=== PATIENT | male | born 1955 | race Caucasian/White ===

== ENCOUNTER → 2016-12-09 | Day surgery (SDC) | payer OTHER ==
[2016-12-06 15:43] VITALS: BMI 27.0
[~2016-12-09] VITALS: Ht 188 cm; Wt 97.7 kg
[~2016-12-09] MED LIST: ATROPINE SULFATE 0.1 MG/ML 5ML SYR IV PRN; BACITRACIN OINT 15 GM TUBE ONE; BUPIVACAINE 0.5 % 5 MG/1 ML MPF 30ML VIAL ONE; CEFAZOLIN 2000 MG/60 ML D5W IV SCH; CEFAZOLIN IV 2,000 MG/60 ML D5W IV ONE; DEXAMETHASONE SOD INJ 4 MG/ML VIAL ONE; EpHEDrine SULFATE INJ 50 MG/ML AMP IV PRN; EpHEDrine SULFATE INJ 50 MG/ML AMP ONE; FENTANYL CITRATE INJ 50 MCG/1 ML 2 ML VIAL IV PRN; FENTANYL CITRATE INJ 50 MCG/1 ML 2 ML VIAL ONE; GLYCOPYRROLATE INJ 0.2 MG/ML VIAL ONE; HYDROmorphone INJ 1 MG/ML SYR IV PRN; LACTATED RINGER'S 1000ML 1,000 ML IV SCH; LIDOCAINE HCL 1% 20 ML VIAL ONE; LIDOCAINE HCL 2% 2 ML VIAL (20MG/ML) ONE; MIDAZOLAM HCL 1 MG/ML 2ML VIAL ONE; MULT-506 PO; NEOSTIGMINE METHYLSULFATE 5 MG/5 ML SYR ONE; NURSING VERBAL MED ORDER ONE; ONDANSETRON INJ 2 MG/ML 2 ML VIAL IV PRN; ONDANSETRON INJ 2 MG/ML 2 ML VIAL ONE; OXYC-57 PO; OXYCODONE/ACETAMINOPHEN 5-325 TAB PO PRN; PHENYLEPHRINE HCL INJ 10 MG/ML VIAL ONE; PROPOFOL IV EMULSION 10 MG/ML 20 ML VIAL IV ONE; ROCURONIUM BROMIDE 10 MG/ML 5 ML VIAL ONE; SUCCINYLCHOLINE CHLORIDE 20 MG/ML 10 ML VIAL IV ONE; VALA500T60 PO
[2016-12-09 05:47] VITALS: BP 127/83; PULSE 59; TEMP 36.7; O2SAT 97; Ht 188 cm; Wt 97.7 kg
--- NOTE | 2016-12-09 07:12 | History & Physical Bridge Note ---
H&P Re-Evaluation Bridge Note: I have examined the patient, reviewed the History & Physical and in the interval since the performance of the History & Physical I have noted the following changes of clinical significance: No changes noted
--- NOTE | 2016-12-09 09:25 | [facility] Post Operative Brief Note ---
Immediate Operative Summary Operative Date Dec 09, 2016. Pre-Operative Diagnosis recurrent Right Inguinal Hernia Post-Operative Diagnosis recurrent Right Inguinal Hernia Procedure(s) Performed Open repair right Recurrent Inguinal Hernia with Mesh Surgeon Dr. Luan Simon Brazing Machine Feeder Surgeon(s) surgical dental assistant Estimated Blood Loss 10ML Findings right large direct inguinal hernia Fluids (cc crystalloids) 1500ml Specimens A. RIGHT HERNIA SAC Drains none Anesthesia general Complication(s) None Disposition Recovery Room / PACU
--- NOTE | 2016-12-09 09:31 | Discharge Instructions ---
Discharge Instructions Visit Reason for Visit: Recurrent Right Inguinal Hernia Discharge Discharge Diagnosis / Problem: S/P open repair right recurrent inguinal hernia with mesh Discharge Goals Goal(s): Decrease discomfort, Improve function Activity Recommendations Activity Limitations: per Instructions/Follow-up section Lifting Limitations: no more than 25 pounds Exercise/Sports Limitations: gradually increase as tolerated May Resume Sexual Activity: when tolerated Shower/Bathe: may shower/bathe in 3 days Driving or Machine Use: resume 3 days after discharge Anesthesia . Post Anesthesia Instructions: If you have had General Anesthesia or IV Sedation: * Do not drive today. * Resume driving when surgeon permits. * Do not make important decisions or sign legal documents today. * Call surgeon for: 1. Temperature elevations greater than 101 degrees F. 2. Uncontrollable pain. 3. Excessive bleeding. 4. Persistent nausea and vomiting. 5. Medication intolerance (nausea, vomiting or rash). * For nausea and vomiting use only clear liquids such as: tea, soda, bouillon until nausea subsides, then gradually increase diet as tolerated. * If you have any concerns or questions, call your surgeon's office. If physician is unavailable and it is an emergency, call 911 or go to the nearest emergency room. . Instructions / Follow-Up Instructions / Follow-Up keep ezequiel dressing on for 4 days, he can take a shower on 12/13/2016, no driving while taking pain medicine. Follow up 1 week. Diet Recommendations Recommended Home Diet: resume previous diet Procedures Procedures Performed: Open repair right Recurrent Inguinal Hernia with Mesh Pending Studies Studies pending at discharge: no Medical Emergencies . Who to Call and When: Medical Emergencies: If at any time you feel your situation is an emergency, please call 911 immediately. . Non-Emergent Contact Call Non-Emergent contact if: you have a fever, temperature is above 100.5, your pain is not controlled, your pain is worsening, wound has increased drainage, wound has increased redness . . "Provider Documentation" section prepared by Luan Simon.
--- NOTE | 2016-12-09 10:06 | Anesthesiology Progress Note ---
Anesthesia Post Op Note Date & Time Dec 09, 2016 at 10:05 Vital Signs Pain Intensity: 2 Vital Signs Past 12 Hours Date Time Temp Pulse Resp B/P Pulse Ox O2 Delivery O2 Flow Rate FiO2 12/09/16 09:55 37.1 60 16 127/88 96 Nasal Cannula 2 12/09/16 09:45 53 16 116/82 93 Nasal Cannula 2 12/09/16 09:35 58 16 130/92 98 Mask 10 12/09/16 09:25 65 16 133/85 98 Mask 10 12/09/16 09:15 36.8 65 12 138/100 98 Mask 10 12/09/16 05:47 36.7 59 18 127/83 97 Room Air Notes Mental Status: alert / awake / arousable, participated in evaluation Pt Amnestic to Procedure: Yes Nausea / Vomiting: adequately controlled Pain: adequately controlled Airway Patency, RR, SpO2: stable & adequate BP & HR: stable & adequate Hydration State: stable & adequate Anesthetic Complications: no major complications apparent
[2016-12-09 10:15] VITALS: BP 119/80; PULSE 61; TEMP 36.5; O2SAT 98
[2016-12-09 10:45] VITALS: BP 129/86; PULSE 65; O2SAT 97
[2016-12-09 11:19] VITALS: BP 127/81; PULSE 68; TEMP 36.5; O2SAT 97
[2016-12-09 12:14] VITALS: BP 132/74; PULSE 74; TEMP 36.5; O2SAT 94
--- NOTE | 2016-12-09 17:42 | OPERATIVE REPORT ---
DATE OF OPERATION: 12/09/2016 PREOPERATIVE DIAGNOSIS: Recurrent right inguinal hernia. POSTOPERATIVE DIAGNOSIS: Same. OPERATION: Open repair of recurrent right inguinal hernia with mesh. SURGEON: Dr. Luan Simon. ANESTHESIA: General. ESTIMATED BLOOD LOSS: About 10 mL. FINDINGS: Recurrent right direct hernia. COMPLICATIONS: None. IV FLUIDS: 1500 mL. INDICATIONS FOR THE PROCEDURE: This is a 61-year-old gentleman, who presented with recurrent right inguinal hernia. After laparoscopy repair of right inguinal hernia, the patient required to do an open repair of right recurrent inguinal hernia with mesh. I did talk to the patient about the benefit and risks and alternate procedure. I indicated the risks may include, but not limited such as bleeding, infection, hematoma, seroma, chronic pain, hernia recurrence, or even . The patient understands. He signed informed consent and I answered all questions. DETAILS OF PROCEDURE: We brought in the patient to the OR and put the patient in the supine position. The patient received SCD on bilateral legs to prevent DVT. Also, the patient received 2 grams Ancef IV for prophylactic antibiotic. The patient received general anesthesia without difficulty. The abdomen was prepped and draped in routine sterile fashion. After timeout, I made about 4-cm incision just parallel to right inguinal ligament and opened the external oblique fascia and mobilized the cord structure, put the Alexandra on and then we found the patient has large direct hernia and I mobilized the direct hernia sac. The cord structure and the nerves were protected at all time. This is a large hernia sac. The hernia sac size is about 10 x 3 cm and I decided to transect the hernia sac. I used 2-0 Prolene to close the neck over the hernia sac and then used a Bovie to take down the hernia sac, rechecked no active bleeding. Then, I used another 2-0 Prolene reinforced the hernia neck. At this moment, I still feel there is some defect on the posterior, so I put one large plug. Then, I used Prolene mesh to reinforce the posterior wall. I used 2-0 Prolene to suture the mesh to conjoined tendon in continuous running and latter I used 2-0 Prolene to suture the mesh to the right inguinal ligament. The suture met together and tied and then, we rechecked that the mesh seated nicely. No tension. Hemostasis obtained. Then, I used 2-0 Vicryl and closed the external opening in continuous running and closed the subcutaneous layer by using 2-0 Vicryl, closed the skin by using 4-0 Vicryl, and then we put a dressing on. Before we put a dressing on, injections of local anesthesia by using 0.5% lidocaine mixed with 0.25% Marcaine around the incision site and then we put a dressing on. All the instrument, needle and sponge counts were correct x2 at the end of case. The specimen was sent to pathology. The patient was extubated in the OR and transferred to recovery room in stable condition. After the procedure, I did talk to the patient's about the OR finding and procedure we did and she understands. Also, before procedure, I educated the patient and the patient's about the postop care instruction, they understand. I will follow up the patient in 1 week. I attest to the content of the Intraoperative Record and any orders documented therein. Any exceptions are noted below. [facility]
== END | disposition home or self-care (01) ==
LOC: C.ACU 05:19
PROVIDERS: ATTEND Surgery
DX: K40.91 Unilateral inguinal hernia, without obstruction or gangrene, recurrent (principal); Z98.890 Other specified postprocedural states; Z87.891 Personal history of nicotine dependence